=== PATIENT | male | born 1990 | race Caucasian/White ===

== ENCOUNTER 2018-11-23 09:05 | Outpatient (CLI) | payer BC, OTHER | END 2018-11-23 09:06 | disposition home or self-care (01) | LOC: PAT 09:05 ==

== ENCOUNTER 2018-11-28 08:34 | Day surgery (SDC) | payer BC | END 2018-11-28 15:20 | disposition home or self-care (01) | LOC: SDS 08:34 | DX: K40.90 Unilateral inguinal hernia, without obstruction or gangrene, not specified as recurrent (principal) ==

== ENCOUNTER 2018-12-05 06:19 | Day surgery (SDC) | payer BC ==
[2018-11-23 09:56] VITALS: BMI 22.8
[2018-12-05] MEDS ORDERED: Bacitracin 500 Units/gm Oint Foilpak UD ONE (07:38)
[2018-12-05] MEDS ORDERED: Bupivacaine 0.5% 50 ML IJ ONE (07:38)
[2018-12-05] MEDS ORDERED: Propofol 10 mg/ml Inj (20 ML) ONE (07:48)
[2018-12-05] MEDS ORDERED: Midazolam 2 MG/2 ML VIAL ONE (07:48)
[2018-12-05] MEDS ORDERED: Succinylcholine 200 mg/10 ml Inj IV ONE (08:11)
[2018-12-05] MEDS ORDERED: Rocuronium 10 mg/ml (5 ml) ONE ×2 (08:28→08:58)
[2018-12-05] MEDS ORDERED: Sevoflurane - Inhalation Anesthetic Liq (250 ml) ONE (09:50)
[2018-12-05] MEDS ORDERED: Glycopyrrolate 0.2 mg/ml (2ml vial) ONE (10:49)
[2018-12-05] MEDS ORDERED: Neostigmine Methylsulfate 3mg/3ml Syringe IV ONE (10:51)
--- NOTE | 2018-12-05 11:00 | PCM.SURG1 ---
Surgeon's Initial Post Op Note - Surgeon's Notes Surgeon: Giuseppe Oracle Iam Consultant: [place] PGY4 Type of Anesthesia: General LMA, Local Pre-Operative Diagnosis: Left inguinal hernia Operative Findings: Indirect L inguinal hernia Post-Operative Diagnosis: same Operation Performed: Laparoscopic ISAK L inguina hernia repair w. phasix mesh Specimen/Specimens Removed: none Estimated Blood Loss: EBL {In ML}: 5 Blood Products Given: N/A Drains Used: No Drains Post-Op Condition: Good Date of Surgery/Procedure: 12/05/18 Time of Surgery/Procedure: 11:00
[2018-12-05] MEDS ORDERED: HYDROmorphone 0.5 mg/0.5 ml ISec IVP PRN (11:01)
[2018-12-05] MEDS ORDERED: HYDROmorphone 0.5 mg/0.5 ml ISec ONE (11:14)
[2018-12-05] MEDS ORDERED: Lactated Ringer's 1,000 ML IV SCH (11:15)
[2018-12-05 12:25] VITALS: RESP 18; TEMP 98.4; O2SAT 96
[2018-12-05 16:27] VITALS: BP 110/76; PULSE 100
--- NOTE | 2018-12-07 04:47 | OP ---
PROCEDURE DATE: 12/05/2018 PREOPERATIVE DIAGNOSIS: Left inguinal hernia. POSTOPERATIVE DIAGNOSIS: Left inguinal hernia. PROCEDURE: Laparoscopic transabdominal preperitoneal repair of the left inguinal hernia. SURGEON: Jorge Chin MD WAREHOUSE RECORD CLERK: Samy Nuñez DO, PGY-4 ANESTHESIOLOGIST: Johnny Tong MD ANESTHESIA: General with local. ESTIMATED BLOOD LOSS: 5 mL. SPECIMEN: Hernia sac. INDICATIONS: This is a 28-year-old male with a symptomatic left inguinal hernia for the past two months. He elected on a laparoscopic hernia repair. After discussing risks and benefits, informed consent was obtained. DESCRIPTION OF THE PROCEDURE: The patient was taken to the operating room and placed on the operating table in the supine position. General anesthesia was induced. All appropriate monitoring devices were in place. SCDs were applied. Vargas was placed and the arms were tucked. The patient's abdomen was then prepped and draped in the usual sterile fashion. A time-out was conducted verifying correct patient, procedure, position, site and laterality. Next, the skin was then infiltrated with local via superior umbilical fold, and a transverse incision was made. The incision was deepened down to the fascia, at which point subcutaneous tissue was set up in the area, and a Veress needle was inserted. Next, pneumoperitoneum was initiated. The patient tolerated pneumoperitoneum well. Once the pressure was 15, a 10-mm port was introduced through the abdomen with the Visiport. The Visiport was entered successfully. Next, under direct visualization, two 5-mm ports were placed into the abdomen at the level of the umbilicus in the left and right sides. At this point, the patient was placed into a steep Trendelenburg, and small bowel was moved away from the pelvis. Both inguinal regions were inspected. The medial umbilical ligament and lateral umbilical ligament were identified. Then using a Harmonic scalpel, the medial umbilical ligament was divided. The peritoneum was incised with the Harmonic scalpel along 1 to 2 cm above the superior edge of the hernia defect. This was extended towards the ASIS on the left side. Peritoneal flap was mobilized inferiorly using blunt and sharp dissection. Inferior epigastric vessels were exposed, and the pubic symphysis was identified. Shiv's ligament was dissected to its junction with the iliac vein, and the dissection was continued inferiorly to the iliopubic tract. Care was taken to avoid injury to the femoral branch of the genitofemoral nerve and the lateral femoral cutaneous nerves. The indirect hernia sac was noted to be large and was therefore was decided just distal to the internal ring using the distal sac and while the proximal sac was dissected away from the cord structures. Next, a 10 x 15 piece of Phasix mesh was rolled longitudinally into a contact zone and was attached to the 10-mm trocar. placed along the inferior aspect of the working space and was unrolled into the space completely to cover the direct and indirect femoral spaces. The mesh was secured and placed superiorly to the anterior abdominal wall inferiorly nearly to the ligament with durable packs. Care was taken to avoid the inferolateral triangles containing the iliac vessels and genital nerves. The peritoneal flap was then closed over the mesh and secured intact in a similar position to safety. After ensuring adequate hemostasis, the trocar was removed, and the pneumoperitoneum was allowed to escape. The trocar incisions were then closed using 0 Vicryl for the umbilical trocar. Then, the skin was closed with a 4-0 Monocryl and then a Dermabond. The patient tolerated the procedure well. He was taken to the PACU in a stable condition. The Vargas was removed at the end of the case. Samy Nuñez DO Jorge Chin MD
== END 2018-12-05 16:30 | disposition home or self-care (01) ==
LOC: SDS 06:19
PROVIDERS: ATTEND Surgery
DX: K40.90 Unilateral inguinal hernia, without obstruction or gangrene, not specified as recurrent (principal)
CPT/HCPCS: 49650; C1781; J0330; J0690; J1170; J1885; J2250; J2405; J2704; J2710; J2765; J3010; J7120 ×2